=== PATIENT | female | born 1990 | race Caucasian/White ===

== ENCOUNTER 2020-01-11 06:25 | Emergency (ER) | payer MEDICAID ==
[~2020-01-11] VITALS: Ht 175.3 cm; Wt 87.7 kg
[2020-01-11 06:30] VITALS: BP 136/89
[2020-01-11] MEDS ORDERED: CYCL5TAB PO (06:53)
[2020-01-11] MEDS ORDERED: IBUP-571 PO (06:53)
--- NOTE | 2020-01-11 06:53 | PHYS DOC ---
Past History Past Medical History: Anxiety, Asthma, Depression Past Surgical History: Tubal ligation, Other Additional Past Surgical Histo: burned lower back nerves Alcohol Use: None Adult General Chief Complaint Chief Complaint: BACK PAIN - NO INJURY HPI HPI Patient is a 29-year-old female who presents for back pain. This has been going on for past 24 hours without known inciting event or trauma. Patient works as a reference library assistant, performs a lot of bending over motions in addition to twisting motions while sedentary in a chair. Nothing known makes better, she has not taken anything in attempt to alleviate the pain. "Everything "makes worse. Patient states she had to go home early yesterday from work due to pain. She called into work sick today due to the pain and nausea from subsequent pain. States pain is most prominent in neck muscles on right side of cervical spine and have been radiating down to right scapular region. Pain is 8 out of 10 in severity right now. Timing of symptoms has been constant and worsening since onset. She has significant mental health history without CAD. She has no red flag signs/symptoms of back pain such as trauma, unexplained weight loss, neurologic symptoms, age greater than 50, fever, history of IV drug use, history of steroid use, history of cancer. Review of Systems Review of Systems Fourteen body systems of review of systems have been reviewed. See HPI for pertinent positives and negative responses, other beard all other systems are negative, non-pertinent or non-contributory Allergies Allergies Allergies Coded Allergies Type Severity Reaction Last Updated Verified No Known Allergies Allergy Unknown 01/11/20 Yes Physical Exam Physical Exam Constitutional: Well developed, well nourished, no acute distress, non-toxic appearance. HENT: Normocephalic, atraumatic, bilateral external ears normal, oropharynx moist, no oral exudates, nose normal. Eyes: PERRLA, EOMI, conjunctiva normal, no discharge. Neck: Normal range of motion, no midline tenderness, supple, no stridor. Patient does have palpable muscle spasm to the right paracervical neck muscles most likely trapezius with taut muscle belly with tender point present. Cardiovascular: Heart rate regular, sinus rhythm, no murmurs rubs or gallops Lungs & Thorax: Bilateral breath sounds clear to auscultation Abdomen: Bowel sounds normal, soft, no tenderness, no masses, no pulsatile masses. Nonsurgical abdomen, no peritoneal signs Skin: Warm, dry, no erythema, no rash. Back: No midline tenderness, no CVA tenderness. Extremities: No tenderness, no cyanosis, no clubbing, ROM intact, no edema. Neurologic: Alert and oriented X 3, grossly normal motor & sensory function, no focal deficits noted. Psychologic: Affect normal, judgement normal, anxious mood Current Patient Data Vital Signs Vital Signs Date Time Temp Pulse Resp B/P (MAP) Pulse Ox O2 Delivery O2 Flow Rate FiO2 01/11/20 06:30 98.3 78 136/89 (105) 100 Room Air EKG EKG [] Radiology/Procedures Radiology/Procedures [] Heart Score HEART Score for Chest Pain: HEART Score for Chest Pain Response (Comments) Value History Slighlty/Non-Suspicious 0 ECG Normal 0 Age < 45 0 Risk Factors 1 or 2 Risk Factors 1 Total 1 Risk Factors: Risk Factors: DM, Current or recent (<one month) smoker, HTN, HLP, family history of CAD, obesity. Risk Scores: Risk Factors: DM, Current or recent (<one month) smoker, HTN, HLP, family history of CAD, obesity. Course & Med Decision Making Course & Med Decision Making Discussed most likely diagnosis of musculoskeletal neck/back pain. History and physical exam nonconcerning for any emergent and/or surgical findings. She has no red flag symptoms prompting further diagnostic work-up in ER setting I discussed role of supportive care, outpatient follow-up with primary care physician and consideration for referral to outpatient therapy versus chiropractor versus osteopathic physician for manipulation for her most likely musculoskeletal in nature pain I did discuss that this might be an acute presentation of more concerning pathology and thus, I stressed the importance of close outpatient follow-up Strict return precautions were discussed with good understanding by patient, all questions and concerns addressed prior to ER departure in stable condition Dragon Disclaimer Dragon Disclaimer This electronic medical record was generated, in whole or in part, using a voice recognition dictation system. Departure Departure: Impression: Primary Impression: Muscle spasm of back Additional Impression: Muscle spasms of neck Disposition: 01 DC HOME SELF CARE/HOMELESS Condition: STABLE Referrals: CHICA TAYLOR (PCP) Patient Instructions: Back Exercises, Muscle Strain Additional Instructions: You were evaluated in the Emergency Department today for neck/back pain. Your evaluation suggests no acute abnormalities which require further intervention at this time. - Move around as tolerated but avoiding heavy lifting. ``Bed rest is not recommended nor is it the best treatment - Medications will help control your discomfort: - -Ibuprofen (600 mg every 8 hours for pain) with food. - -Tylenol - Do not drink alcohol, drive a car, operate machinery, or get up on ladders or heights when taking any prescribed pain medications. - Do not drive home if you received prescribed pain medications here in the ED. Return to the ED immediately if you develop any of the following problems: - Leaking urine or difficulty urinating; - Inability to control your bowels; - New numbness or weakness in your legs or numbness between your legs; - Inability to walk - Fever Scripts Cyclobenzaprine Hcl (CYCLOBENZAPRINE HCL) 5 Mg Tablet 1 TAB PO QHS for muscle spasm, #7 TAB Prov: PATRICIO CLEMENS DO 01/11/20 Ibuprofen (Ibu) 600 Mg Tablet 1 TAB PO Q6-8HRS for pain, fever, inflammation for 6 Days, #24 TAB 0 Refills Prov: PATRICIO CLEMENS DO 01/11/20 Problem Qualifiers PATRICIO CLEMENS DO Jan 11, 2020 06:53
[2020-01-11] MEDS ORDERED: CYCLOBENZAPRINE 10 MG TABLET. PO ONE (07:00)
[2020-01-11] MEDS ORDERED: KETOROLAC 60 MG/2 ML VIAL. IM ONE (07:00)
== END 2020-01-11 07:51 | disposition home or self-care (01) ==
LOC: ER 06:25
DX: M62.830 Muscle spasm of back (principal); M62.838 Other muscle spasm; F41.9 Anxiety disorder, unspecified; J45.909 Unspecified asthma, uncomplicated; F32.9 Major depressive disorder, single episode, unspecified
CPT/HCPCS: 96372; 99283; J1885

== ENCOUNTER 2020-03-24 17:02 | Emergency (ER) | payer MEDICAID ==
[~2020-03-24] VITALS: Ht 175.3 cm; Wt 91.0 kg
[~2020-03-24 17:02] MED LIST: CYCL5TAB PO; IBUP-571 PO
[2020-03-24 17:40] LABS: BASO % 0 % (0-3); EOS # 0.4 x10^3/uL (0.0-0.7); EOS % 2 % (0-3); HEMATOCRIT 44.2 % (36.0-47.0); HEMOGLOBIN 14.4 g/dL (12.0-15.5); LYMPH # 5.1 x10^3/uL (1.0-4.8); LYMPH % 26 % (24-48); MEAN CORPUSCULAR HEMOGLOBIN 30 pg (25-35); MEAN CORPUSCULAR HGB CONC 33 g/dL (31-37); MEAN CORPUSCULAR VOLUME 91 fL (79-100); MONO # 1.8 x10^3/uL (0.0-1.1); MONO % 9 % (0-9); NEUT # 12.2 x10^3uL (1.8-7.7); NEUT % 62 % (31-73); PLATELET COUNT 308 x10^3/uL (140-400); RED BLOOD COUNT 4.85 x10^6/uL (3.50-5.40); RED CELL DISTRIBUTION WIDTH 15.1 % (11.5-14.5); WHITE BLOOD COUNT 19.6 x10^3/uL (4.0-11.0)
--- NOTE | 2020-03-24 17:46 | PHYS DOC ---
Past History Past Medical History: Anxiety, Asthma, Depression Past Surgical History: Tubal ligation, Other Additional Past Surgical Histo: burned lower back nerves Alcohol Use: None Adult General Chief Complaint Chief Complaint: HEAD INJURY/TRAUMA HPI HPI Patient is a 29-year-old female presents to the emergency department stating that approximately 30 minutes prior to arrival she took a bite of meatloaf and immediately started throwing up. Patient states that there was nothing wrong with the meatloaf, she just does not like meat loaf and was only eating it to be nice. Patient states that during her vomiting and retching episode she felt a sudden onset of severe pain in the back of her neck and head that she describes as a thunderclap onset. Patient states that the pain radiates to the front of her head. Patient denies any other numbness or tingling or other neurological deficits. Patient denies any visual changes. Patient denies photophobia. Patient states this is the worst headache she has ever had. Patient denies any history of migraine headaches, stating she has had headaches in the past but has never had one bad enough to require medical attention or seek medical help. Patient states her headaches in the past were always relieved with [id number] Tylenol and/or Motrin. Patient states she has of surgical history of a tubal ligation in 2015 and has had no other surgeries. Patient denies any food allergies. Patient denies chest pain, shortness of breath, cough, or congestion. Patient denies recent fever or chills. Patient denies any other physical symptoms or physical complaints. Review of Systems Review of Systems 14 body systems of review of systems have been reviewed. See HPI for pertinent positives and negative responses, otherwise all other systems are negative, nonpertinent or noncontributory. Current Medications Current Medications Patient reports taking daily Zyrtec, Advair inhaler, Lexapro, Metformin 500 mg twice daily, Singulair daily, lithium 1200 mg daily. Current Medications Medications (Trade) Dose Ordered Sig/Mayte Start Time Stop Time Status Last Admin Dose Admin Fentanyl Citrate (Fentanyl 2ml Vial) 50 mcg 1X ONCE 03/24/20 17:45 03/24/20 17:46 UNV Iohexol (Omnipaque 350 Mg/ml) 100 ml 1X ONCE 03/24/20 18:00 03/24/20 18:01 Allergies Allergies Allergies Coded Allergies Type Severity Reaction Last Updated Verified No Known Drug Allergies 03/24/20 No Physical Exam Physical Exam Constitutional: Well developed, well nourished, no acute distress, non-toxic appearance. Patient in no apparent distress. HENT: Normocephalic, atraumatic, bilateral external ears normal, oropharynx moist, no oral exudates, nose normal. Pain to palpation along base of occipital area superiorly to parietal area, no trauma appreciated, no depressions or swelling noted, skull intact. Eyes: PERRLA, EOMI, conjunctiva normal, no discharge. [] Neck: Normal range of motion, tenderness to palpation along midline spine, supple, no stridor. No nuchal rigidity appreciated Cardiovascular:Heart rate regular rhythm, no murmur [] Lungs & Thorax: Bilateral breath sounds clear to auscultation [] Abdomen: Bowel sounds normal, soft, no tenderness, no masses, no pulsatile masses. [] Skin: Warm, dry, no erythema, no rash. [] Back: No tenderness, no CVA tenderness. [] Extremities: No tenderness, no cyanosis, no clubbing, ROM intact, no edema. [] Neurologic: Alert and oriented X 3, normal motor function, normal sensory function, no focal deficits noted. [] Psychologic: Affect normal, judgement normal, mood normal. [] EKG EKG [] Radiology/Procedures Radiology/Procedures PATIENT: BESSIE PEMBERTON ACCOUNT: [id number] : 1990 LOCATION: ER AGE: 29 SEX: F EXAM STATUS: REG ER ORD. PHYSICIAN: ANA BELLA APRN REASON: THUNDERCLAP ONSET HEADACHE AFTER VOMITING PROCEDURE: CT ANGIOGRAPHY HEAD AND NECK Exam: CTA head and neck INDICATION: Thunderclap, onset headache after vomiting TECHNIQUE: Sequential axial images through the head and neck obtained following the administration of 90 mL of Isovue-370 IV contrast. Sagittal and coronal reformatted images were reconstructed from the axial data and reviewed. 3-D reformatted images were reconstructed from the axial data and reviewed. Comparisons: None FINDINGS: CTA NECK: Visualized portions thoracic aorta are unremarkable. Standard three-vessel aortic arch anatomy. Right common carotid artery is patent without evidence of stenosis, occlusion or aneurysm. Cervical segment of the right internal carotid artery without evidence of stenosis, occlusion or aneurysm. Left common carotid artery is patent without evidence of stenosis, occlusion or aneurysm. Cervical segment of the left internal carotid artery is patent without evidence of stenosis, occlusion or aneurysm. Right vertebral artery is patent to the basilar confluence without evidence of stenosis, occlusion or aneurysm. Left vertebral artery is patent to the basilar confluence without evidence of stenosis, occlusion or aneurysm. Visualized paraspinal soft tissues are unremarkable. CTA head: Intracranial segments of the right internal carotid artery are patent without evidence of stenosis, occlusion or aneurysm. Right MCA is patent. Right SHANE is patent. Intracranial segments of the left internal carotid artery is patent without evidence of stenosis, occlusion or aneurysm. Left MCA is patent. Left SHANE is patent. Basilar artery is patent without evidence of stenosis, occlusion or aneurysm. clinical scientist are patent bilaterally IMPRESSION: Patent intracranial and cervical arterial vasculature without evidence of stenosis, occlusion or aneurysm. Exposure: One or more of the following in the visualized dose reduction techniques were utilized for this examination: 1. Automated exposure control 2. Adjustment of the MA and/or KV according to patient size 3. Use of iterative of reconstructive technique Electronically signed by: Eduardo Callaway MD (03/24/2020 6:29 PM) [facility] DICTATED AND SIGNED BY: EDUARDO CALLAWAY MD DATE: 03/24/201823 CC: ANA BELLA APRN; CHICA TAYLOR ~MTH0 0 Heart Score Risk Factors: Risk Factors: DM, Current or recent (<one month) smoker, HTN, HLP, family history of CAD, obesity. Risk Scores: Risk Factors: DM, Current or recent (<one month) smoker, HTN, HLP, family history of CAD, obesity. Course & Med Decision Making Course & Med Decision Making Pertinent Labs and Imaging studies reviewed. (See chart for details) 29-year-old female, vital signs reviewed, presents to the ER for one episode of vomiting with a sudden onset headache thunderclap onset worst headache of her life. Physical examination unremarkable, related to patient chief complaint and onset ER work-up CT angio head and C-spine was ordered. CT negative for acute process, patient continued to complain of pain after 50 mics IV fentanyl, patient given 1 mg Dilaudid IV, upon reevaluation patient's pain is now 0/10 on a 1-10 pain scale and patient states she is ready to go home. Discussed findings with patient, return to ER precautions or concerns, home care, follow-up with primary care for ongoing headaches, patient gave v erbal understanding and had no further questions or concerns and was discharged home. Patient's white blood cell count elevated most likely related to acute onset vomiting prior to arrival. The patient is nontoxic in appearance and has no complaints at this time. Dragon Disclaimer Dragon Disclaimer This electronic medical record was generated, in whole or in part, using a voice recognition dictation system. Departure Departure: Impression: Primary Impression: Headache Disposition: 01 DC HOME SELF CARE/HOMELESS Condition: IMPROVED Referrals: CHICA TAYLOR (PCP) Patient Instructions: General Headache Without Cause Additional Instructions: You have been evaluated for headache, the CAT scan of your head did not show any concerning problems, follow-up with your primary care doctor for ongoing he adache pains, return to the emergency department for worsening symptoms or other concerns. EMERGENCY DEPARTMENT GENERAL DISCHARGE INSTRUCTIONS Thank you for coming to [facility] (ED) today and trusting us with you care. We trust that you had a positivie experience in our Emergency Department. If you wish to speak to the department management, you may call the director at [phone]. YOUR FOLLOW UP INSTRUCTIONS ARE FOLLOWS: 1. Do you have a private Doctor? If you do not have a private doctor, please ask for a resource list of physicians or clinics that may be able to assist you with follow up care. 2. The Emergency Physician has interpreted your x-rays. The X-Ray specialist will also review them. If there is a change in the findings, you will be notified in 48 hours when at all possible. 3. A lab test or culture has been done, your results will be reviewed and you will be notified if you need a change in treatment. ADDITIONAL INSTRUCTIONS AND INFORMATION: 1. Your care today has been supervised by a physician who is specially trained in emergency care. Many problems require more than one evaluation for a complete diagnosis and treatment. We recommend that you schedule your follow up appointment as recommended to ensure complete treatment of you illness or injury. If you are unable to obtain follow up care and continue to have a problem, or if your condition worsens, we recommend that you return to the ED. 2. We are not able to safely determine your condition over the phone nor are we able to give sound medical advice over the phone. For these safety reasons, if you call for medical advice we will ask you to come to the ED for further evaluation. 3. If you have any questions regarding these discharge instructions please call the ED at [phone]. SAFETY INFORMATION: In the interest of safety, wellness, and injury prevention; we encourage you to wear your sealbelt, if you smoke; quite smoking, and we encourage family to use a protective helmet for bicycling and other sporting events that present an increased risk for head injury. IF YOUR SYMPTOMS WORSEN OR NEW SYMPTOMS DEVELOP, OR YOU HAVE CONCERNS ABOUT YOUR CONDITION; OR IF YOUR CONDITION WORSENS WHILE YOU ARE WAITING FOR YOUR FOLLOW UP APPOI NTMENT; EITHER CONTACT YOUR PRIMARY CARE DOCTOR, THE PHYSICIAN WHOSE NAME AND NUMBER YOU WERE GIVEN, OR RETURN TO THE ED IMMEDIATELY. Problem Qualifiers Primary Impression: Headache Headache type: unspecified Headache chronicity pattern: acute headache Intractability: not intractable Qualified Codes: R51.9 - Headache, unspecified ANA BELLA APRN Mar 24, 2020 17:45
[2020-03-24 17:48] LABS: ALBUMIN/GLOBULIN RATIO 1.1 (1.0-1.7); CALCIUM 10.4 mg/dL (8.5-10.1); CREATININE 0.8 mg/dL (0.6-1.0); GFR 84.8; POTASSIUM 3.8 mmol/L (3.5-5.1); TOTAL BILIRUBIN 0.3 mg/dL (0.2-1.0); TOTAL PROTEIN 7.6 g/dL (6.4-8.2)
[2020-03-24] MEDS ORDERED: IOHEXOL 350 MG/ML 100 ML VIAL. IV ONE (18:00)
[2020-03-24] MEDS ORDERED: HYDROmorphone PF 1 MG/ML DISP.SYRIN IVP ONE (18:30)
--- NOTE | 2020-03-24 18:31 | RAD ---
Exam: CTA head and neck INDICATION: Thunderclap, onset headache after vomiting TECHNIQUE: Sequential axial images through the head and neck obtained following the administration of 90 mL of Isovue-370 IV contrast. Sagittal and coronal reformatted images were reconstructed from the axial data and reviewed. 3-D reformatted images were reconstructed from the axial data and reviewed. Comparisons: None FINDINGS: CTA NECK: Visualized portions thoracic aorta are unremarkable. Standard three-vessel aortic arch anatomy. Right common carotid artery is patent without evidence of stenosis, occlusion or aneurysm. Cervical s egment of the right internal carotid artery without evidence of stenosis, occlusion or aneurysm. Left common carotid artery is patent without evidence of stenosis, occlusion or aneurysm. Cervical se gment of the left internal carotid artery is patent without evidence of stenosis, occlusion or aneury sm. Right vertebral artery is patent to the basilar confluence without evidence of stenosis, occlusion or aneurysm. Left vertebral artery is patent to the basilar confluence without evidence of stenosis, occlusion or aneurysm. Visualized paraspinal soft tissues are unremarkable. CTA head: Intracranial segments of the right internal carotid artery are patent without evidence of stenosis, o cclusion or aneurysm. Right MCA is patent. Right SHANE is patent. Intracranial segments of the left internal carotid artery is patent without evidence of stenosis, occ lusion or aneurysm. Left MCA is patent. Left SHANE is patent. Basilar artery is patent without evidence of stenosis, occlusion or aneurysm. principal account clerk are patent bilater ally IMPRESSION: Patent intracranial and cervical arterial vasculature without evidence of stenosis, occlusion or aneu rysm. Exposure: One or more of the following in the visualized dose reduction techniques were utilized for this examination: 1. Automated exposure control 2. Adjustment of the MA and/or KV according to patient size 3. Use of iterative of reconstructive technique Electronically signed by: Eduardo Kuo MD (03/24/2020 6:29 PM) [facility]
[2020-03-24 18:32] VITALS: BP 172/91
== END 2020-03-24 18:52 | disposition home or self-care (01) ==
LOC: ER 17:02
DX: R51.9 Headache, unspecified (principal); R11.10 Vomiting, unspecified; F41.9 Anxiety disorder, unspecified; J45.909 Unspecified asthma, uncomplicated; F32.9 Major depressive disorder, single episode, unspecified; Z98.51 Tubal ligation status; Z98.890 Other specified postprocedural states
CPT/HCPCS: 36415; 70496; 70498; 80053; 85025; 96374; 96375; 99285; J1170; J3010

== ENCOUNTER 2020-03-25 04:29 | Emergency (ER) | payer MEDICAID ==
[~2020-03-25] VITALS: Ht 175.3 cm; Wt 90.1 kg
--- NOTE | 2020-03-25 04:32 | PHYS DOC ---
Past History Past Medical History: Anxiety, Asthma, Depression, Fibromyalgia, High Cholesterol, Migraines Past Medical History Hx. Borderline Personality (KRISTIE ANDRADE MD) Past Surgical History: Tubal ligation, Other Additional Past Surgical Histo: burned lower back nerves (KRISTIE ANDRADE MD) Smoking: Cigarettes Alcohol Use: None (KRISTIE ANDRADE MD) General Adult HPI: HPI: ".. I got sick yesterday.. and came in they did a CT.. for my headache.. and got some pain meds.. but symptom cleared here.. so they sent me home.." Patient is a 29 year old female who presents with above hx and complaints of nausea, vomiting, diarrhea, headache, malaise, arthralgia, and now dry heaves. Patient states symptoms started yesterday after eating some meat loaf. Patient states that the people in the family ate the meat loaf with no episode of nausea and vomiting. No recent travel. No specific ill contacts. Normally follows with Dr. Stone. Patient does have a history of chronic pain, chronic back pain, borderline personality, depression, anxiety, asthma, obesity, allergies, and takes lithium for control of her depression. Patient follows with Dr. Sukhi SCOTT for her depression and psych meds. Patient denies any trauma. Patient has history 2 term 2 and tubal ligation 2014. Patient had surgical treatment of her chronic back pain- trigger points burnt. Patient has been compliant with her lithium of 1200 mg a day. Patient cervical & head CT- with contrast yesterday showed no acute pathology. Patient does not do flu vaccination. Has 3 dogs at home they are all well. They are on city water. No one else in the home are ill. Patient denies any fever or chills. (KRISTIE ANDRADE MD) Review of Systems: Review of Systems: Constitutional: Denies fever or chills Eyes: Denies change in visual acuity HENT: Denies nasal congestion or sore throat Respiratory: Denies cough or shortness of breath Cardiovascular: Denies chest pain or edema GI: Complains of abdominal pain, nausea, vomiting, and diarrhea. Denies bloody stools : Denies dysuria Musculoskeletal: Denies back pain or joint pain Integument: Denies rash Neurologic: Complains of headache,. Denies focal weakness or sensory changes Endocrine: Denies polyuria or polydipsia Lymphatic: Denies swollen glands Psychiatric: Complaints of depression and anxiety (KRISTIE ANDRADE MD) Family History: Family History: Noncontributory to presentation (KRISTIE NADRADE MD) Current Medications: Current Meds: See nursing for home meds (KRISTIE ANDRADE MD) Allergies: Allergies: Allergies Coded Allergies Type Severity Reaction Last Updated Verified No Known Drug Allergies 03/24/20 No (KRISTIE ANDRADE MD) Physical Exam: PE: Constitutional: Moderately acute distress, non-toxic appearance. [] HENT: Normocephalic, atraumatic, bilateral external ears normal, oropharynx moist, no oral exudates, nose swollen turbinates clear rhinorrhea. Eyes: PERRLA, EOMI, conjunctiva normal, no discharge. [] Neck: Normal range of motion, no tenderness, supple, no stridor. [] Cardiovascular: Tachycardia heart rate regular rhythm, no murmur [] Lungs & Thorax: Bilateral breath sounds equal apex with few scattered wheezes auscultation [] Abdomen: Bowel sounds hyperactive, soft, generalized tenderness, no masses, no pulsatile masses. Old surgery scars. Obese Skin: Warm, dry, no erythema, no rash. Tattoos Back: No tenderness, no CVA tenderness. [] Extremities: No tenderness, no cyanosis, no clubbing, ROM intact, no edema. [] Neurologic: Alert and oriented X 3, normal motor function, normal sensory function, no focal deficits noted. DTRs +2 patella and brachial. Chief Operator Reformer equal. No drift. Ambulatory without problems. Right-hand dominant. Psychologic: Affect anxious, judgement normal, mood depressed. No suicidal homicidal ideation. (KRISTIE ANDRADE MD) EKG: EKG: [] (KRISTIE ANDRADE MD) Radiology/Procedures: Radiology/Procedures: [][address] [address] IMAGING REPORT Signed PATIENT: BESSIE PEMBERTON ACCOUNT: [id number] : 1990 LOCATION: ER AGE: 29 SEX: F EXAM STATUS: PRE ER ORD. PHYSICIAN: KRISTIE ANDRADE MD REASON: Nausea, vomiting, headache PROCEDURE: ACUTE ABDOMEN SERIES ACUTE ABDOMEN SERIES History: Nausea, vomiting, headache. Comparison: None. Findings: Frontal chest and supine and upright views of the abdomen. Cardiomediastinal silhouette is normal. There is no pleural effusion or pneumothorax. The lungs are clear. No pneumoperitoneum is identified. There is a paucity of bowel gas decreasing sensitivity. No dilated air-filled loops of bowel are seen. Bowel gas pattern is nonobstructive. No obvious organomegaly. Bones unremarkable. IMPRESSION: 1. No acute cardiopulmonary process. 2. Nonobstructive bowel gas pattern. Electronically signed by: Rubio Dudley MD (03/25/2020 5:30 AM) [facility] DICTATED AND SIGNED BY: RUBIO DUDLEY MD DATE: 03/25/20527 CC: KRISTIE ANDRADE MD; MANUELTriniCHICA D ~MTH0 0 (KRISTIE ANDRADE MD) Heart Score: Risk Factors: Risk Factors: DM, Current or recent (<one month) smoker, HTN, HLP, family history of CAD, obesity. Risk Scores: Score 0 - 3: 2.5% MACE over next 6 weeks - Discharge Home Score 4 - 6: 20.3% MACE over next 6 weeks - Admit for Clinical Observation Score 7 - 10: 72.7% MACE over next 6 weeks - Early Invasive Strategies (KRISTIE ANDRADE MD) Course & Med Decision Making: Course & Med Decision Making Pertinent Labs and Imaging studies reviewed. (See chart for details) Pt. endorsed to Dr. Blount at shift change she will make disposition of pt. 0600 Impression: 1. Acute gastroenteritis nausea vomiting diarrhea 2. Viral syndrome 3. Headache- 4. History of depression treated with lithium 5. History of anxiety 6. History of borderline personality [] (KRISTIE ANDRADE MD) Course & Med Decision Making Accepted care of patient at shift change, patient is pending urine but will discuss with patient she has no urinary symptoms. Given Toradol with decrease in headache pain to a 2 out of 10. Patient states she is feeling much better and would like to go home. Discussed return precautions and following up with primary care (JEB BLOUNT MD) Dragon Disclaimer: Dragon Disclaimer: This electronic medical record was generated, in whole or in part, using a voice recognition dictation system. (KRISTIE ANDRADE MD) Departure Departure: Impression: Primary Impression: Headache Disposition: 01 DC HOME SELF CARE/HOMELESS Condition: IMPROVED Referrals: CHICA STONE (PCP) Patient Instructions: General Headache Without Cause Additional Instructions: You have been tested for or diagnosed with COVID-19. It is an infection caused by a new type of coronavirus. COVID-19 will cause cold-like or mild flu symptoms in most. It can cause more severe symptoms like problems breathing in some. There is no treatment for COVID-19. The body will clear the infection over time. Self-care will help to ease discomfort. Steps to Take: Self-Care Rest as needed. Healthy habits may help you feel better. Steps include: Choose healthy foods including fruits and vegetables. Drink water throughout the day. Get plenty of sleep each night. If you smoke, try to quit. It may ease breathing. Avoid alcohol. Keep Others Healthy The virus can spread to others. Droplets are released every time you sneeze or cough. The droplets can get into the mouth, nose, or eyes of people near you and lead to infection. To lower the chances of spreading COVID-19 to others: Stay at home until your doctor has said it is safe to leave. If you tested positive this will mean staying isolated until both of the following are true: At least 7 days have passed since the start of illness. You are free of fever for at least 72 hours without the use of medicine. During this time: - Avoid public areas, events, or transportation. Do not return to work or school until your doctor has said it is safe to do so. - Call ahead if you need to go to a medical center. Let them know you may have COVID-19. It will help them guide you where to go. They may also ask you to wear a facemask when you come to the office. - If you call for emergency medical services, let them know you may have COVID- 19. While at home: - Try to avoid close contact with others. Stay about 6 feet away. - If possible, spend most of your time in a separate room from others. - Use a face mask if you will be in close contact with others such as sharing a room or vehicle. - Have someone wipe down common surfaces in the home. Use household office machine punch operator every day on areas like doorknobs, counters, or sinks. - Cough or sneeze into a tissue. Throw the tissue away right after use. If a tissue is not available, cough or sneeze into your elbow. - Wash your hands often. Wash them after sneezing or coughing. Use soap and water and wash for at least 20 seconds. Alcohol based hand stitch cleaner can be used if soap and water is not available. - Do not prepare food for others. Avoid sharing personal items like forks, spoons, or toothbrushes. - Avoid close contact with pets while you are sick. There is no evidence of the virus passing to pets. This is a safety step until more is known about this virus. Isolation can be frustrating. Social interaction can help. Keep in touch with friends and family through phone and tech options. You can still interact with others in your home, just keep a safe distance of about 6 feet. Follow-up: Your doctors office will check in with you to see if there are any changes in your health. You may be asked to keep track of symptoms to share with them. They will also let you know when you are clear to be in public again. Problems to Look Out For: Contact your doctor if your recovery is not going as you expect. Get emergency care if you have problems such as: - Trouble breathing - Nonstop chest pain or pressure - Changes in awareness, confusion, or problems waking - Lips or face have bluish color - Worsening of symptoms If you think you have an emergency, call for emergency medical services right away. As taken from [facility] Disclaimer This chart was dictated in whole or in part using Voice Recognition software in a busy, high-work load, and often noisy Emergency Department environment. It may contain unintended and wholly unrecognized errors or omissions. (KRISTIE ANDRADE MD) KRISTIE ANDRADE MD Mar 25, 2020 04:32 JEB BLOUNT MD Mar 25, 2020 07:08
[2020-03-25] MEDS ORDERED: PROCHLORPERAZINE 10 MG/2 ML VIAL. IV ONE (05:00)
[2020-03-25] MEDS ORDERED: IV RINGERS SOLUTION,LACTATED 1,000 ML IV SCH (05:00)
[2020-03-25] MEDS ORDERED: diphenhydrAMINE 50 MG/ML VIAL IV ONE (05:00)
--- NOTE | 2020-03-25 05:15 | EKG ---
[address] [address] Test Date: 2020-03-25 Test Time: 05:08:28 Pat Name: BESSIE PEMBERTON Department: Room: Gender: F Lsat Instructor: : 1990 Requested By: KRISTIE ANDRADE Order Number: [id number] Reading MD: Measurements Intervals [place] Rate: 80 P: 55 MS: 146 QRS: 60 QRSD: 88 T: 53 QT: 382 QTc: 444 Interpretive Statements SINUS RHYTHM NORMAL ECG RI6.02 No previous ECG available for comparison
--- NOTE | 2020-03-25 05:33 | RAD ---
ACUTE ABDOMEN SERIES History: Nausea, vomiting, headache. Comparison: None. Findings: Frontal chest and supine and upright views of the abdomen. Cardiomediastinal silhouette is normal. There is no pleural effusion or pneumothorax. The lungs are clear. No pneumoperitoneum is identified. There is a paucity of bowel gas decreasing sensitivity. No dilated air-filled loops of bowel are seen. Bowel gas pattern is nonobstructive. No obvious organomegaly. Bones unremarkable. IMPRESSION: 1. No acute cardiopulmonary process. 2. Nonobstructive bowel gas pattern. Electronically signed by: Rubio Dudley MD (03/25/2020 5:30 AM) [facility]
[2020-03-25 05:52] LABS: CALCIUM 9.7 mg/dL (8.5-10.1); CREATININE 0.8 mg/dL (0.6-1.0); GFR 84.8; POTASSIUM 3.6 mmol/L (3.5-5.1)
[2020-03-25 05:58] LABS: ALBUMIN 3.7 g/dL (3.4-5.0); BASO # 0.1 x10^3/uL (0.0-0.2); BASO % 1 % (0-3); C REACTIVE PROTEIN 7.3 mg/L (0-3.3); DIRECT BILIRUBIN 0.2 mg/dL (0.0-0.2); EOS # 0.5 x10^3/uL (0.0-0.7); EOS % 4 % (0-3); HEMATOCRIT 44.3 % (36.0-47.0); HEMOGLOBIN 14.3 g/dL (12.0-15.5); LYMPH # 2.4 x10^3/uL (1.0-4.8); LYMPH % 19 % (24-48); MAGNESIUM 1.8 mg/dL (1.8-2.4); MEAN CORPUSCULAR HEMOGLOBIN 29 pg (25-35); MEAN CORPUSCULAR HGB CONC 32 g/dL (31-37); MEAN CORPUSCULAR VOLUME 91 fL (79-100); MONO # 1.1 x10^3/uL (0.0-1.1); MONO % 9 % (0-9); NEUT # 8.3 x10^3uL (1.8-7.7); NEUT % 67 % (31-73); PLATELET COUNT 275 x10^3/uL (140-400); RED BLOOD COUNT 4.88 x10^6/uL (3.50-5.40); RED CELL DISTRIBUTION WIDTH 15.1 % (11.5-14.5); TOTAL BILIRUBIN 0.9 mg/dL (0.2-1.0); TOTAL PROTEIN 7.3 g/dL (6.4-8.2); WHITE BLOOD COUNT 12.3 x10^3/uL (4.0-11.0)
[2020-03-25] MEDS ORDERED: KETOROLAC 30 MG/ML VIAL. IVP ONE (06:15)
[2020-03-25] MEDS ORDERED: KETOROLAC 30 MG/ML VIAL. ONE (06:17)
[2020-03-25 06:55] LABS: INFLUENZA A PATIENT NEGATIVE (NEGATIVE); INFLUENZA B PATIENT NEGATIVE (NEGATIVE)
[2020-03-25 07:10] VITALS: BP 123/83
[2020-03-25 07:33] LABS: % ATYL 3 % (0-0); % BANDS 3 % (0-9); % EOS 6 % (0-5); % LYMPHS 13 % (24-48); % MONOS 5 % (0-10); % SEGS 70 % (35-66)
[2020-03-25 07:35] LABS: PLT ESTIMATE ADEQUATE (ADEQUATE); POLYCHROMASIA PRESENT
== END 2020-03-25 07:15 | disposition home or self-care (01) ==
LOC: ER 04:29
DX: K52.9 Noninfective gastroenteritis and colitis, unspecified (principal); B34.9 Viral infection, unspecified; G43.909 Migraine, unspecified, not intractable, without status migrainosus; F60.3 Borderline personality disorder; F31.9 Bipolar disorder, unspecified; F41.9 Anxiety disorder, unspecified; F17.210 Nicotine dependence, cigarettes, uncomplicated; J45.909 Unspecified asthma, uncomplicated; M79.7 Fibromyalgia; E78.00 Pure hypercholesterolemia, unspecified; Z20.822 Contact with and (suspected) exposure to COVID-19
CPT/HCPCS: 36415; 74022; 80048; 80076; 80178; 82150; 82550; 83690; 83735; 84443; 84484; 85007; 85025; 85610; 85730; 86140; 86705; 86709; 86803; 87340; 87804; 93005; 96361; 96374; 96375; 99285; C9803; J0780; J1200; J1885; J7120; U0003

== ENCOUNTER 2020-03-28 06:17 | Emergency (ER) | payer MEDICAID ==
[~2020-03-28] VITALS: Ht 175.3 cm; Wt 90.1 kg
[2020-03-28 06:17] VITALS: BP 185/83
[2020-03-28] MEDS ORDERED: HALOPERIDOL LACT 5 MG/ML VIAL. IVP ONE (06:45)
[2020-03-28] MEDS ORDERED: IV NORMAL SALINE 1,000ML 1,000 ML IV ONE (06:45)
[2020-03-28] MEDS ORDERED: DEXAMETHASONE SOD PHOS 10 MG/ML VIAL. IV ONE (06:45)
[2020-03-28] MEDS ORDERED: PROCHLORPERAZINE 10 MG/2 ML VIAL. IV ONE (06:45)
[2020-03-28] MEDS ORDERED: diphenhydrAMINE HCL 25 MG CAPSULE PO ONE (06:45)
--- NOTE | 2020-03-28 07:06 | PHYS DOC ---
Past History Past Medical History: Anxiety, Asthma, Depression, Fibromyalgia, High Cholesterol, Migraines Past Surgical History: Tubal ligation, Other Additional Past Surgical Histo: BURNED LOWER BACK NERVES Smoking: Cigarettes Alcohol Use: None Adult General Chief Complaint Chief Complaint: HEADACHE HPI HPI Patient is a 29-year-old female who presents to the emergency room complaining of headache. Patient has been having intermittent headaches since Thursday. She states that the headache is always there but does improve over time. She has been taking Tylenol at home for this without any relief. She also took prednisone yesterday without any relief. She was seen here on Thursday for the same symptoms and at that time had a CT angio and KUB that were normal. She was having nausea and diarrhea when this originally started. She states that she took a suppository for her nausea today which resolved with those symptoms. She states she went to go to the bathroom this morning to have a bowel movement and her headache suddenly got severely worse. She states this happens typically anytime she tries to have a bowel movement or she vomits. Review of Systems Review of Systems Complete ROS is negative unless otherwise documented in HPI Current Medications Current Medications Current Medications Medications (Trade) Dose Ordered Sig/Mayte Start Time Stop Time Status Last Admin Dose Admin Dexamethasone Sodium Phosphate (Decadron) 10 mg 1X ONCE 03/28/20 06:45 03/28/20 06:46 UNV Diphenhydramine HCl (Benadryl) 25 mg 1X ONCE 03/28/20 06:45 03/28/20 06:46 UNV Haloperidol Lactate (Haldol) 5 mg 1X ONCE 03/28/20 06:45 03/28/20 06:46 UNV Prochlorperazine Edisylate (Compazine) 10 mg 1X ONCE 03/28/20 06:45 03/28/20 06:46 UNV Sodium Chloride 1,000 ml @ 1,000 mls/hr 1X ONCE 03/28/20 06:45 03/28/20 07:44 UNV Allergies Allergies Allergies Coded Allergies Type Severity Reaction Last Updated Verified No Known Drug Allergies 03/24/20 No Physical Exam Physical Exam General: Awake, alert, NAD. Well Nourished, well hydrated. Cooperative HEENT: Atraumatic, EOMI, PERRL, airway patent, moist oral mucosa Neck: Supple, trachea midline Respiratory: CTA bilaterally, normal effort, no wheezing/crackles CV: RRR, no murmur, cap refill <2 GI: Soft, nondistended, nontender, no masses MSK: No obvious deformities Skin: Warm, dry, intact Neuro: A&O x3, speech NL, 5/5 strength in BUE/BLE distally and proximally, CN 2- 12 intact, cerebellar testing normal Psych: Normal affect, tearful, not suicidal or homicidal Current Patient Data Vital Signs Vital Signs Date Time Temp Pulse Resp B/P (MAP) Pulse Ox O2 Delivery O2 Flow Rate FiO2 03/28/20 06:17 98.9 75 22 185/83 (117) 99 Room Air EKG EKG [] Radiology/Procedures Radiology/Procedures [] Heart Score Risk Factors: Risk Factors: DM, Current or recent (<one month) smoker, HTN, HLP, family history of CAD, obesity. Risk Scores: Risk Factors: DM, Current or recent (<one month) smoker, HTN, HLP, family history of CAD, obesity. Course & Med Decision Making Course & Med Decision Making Pertinent Labs and Imaging studies reviewed. (See chart for details) Patient is a 29-year-old female who presents to the emergency room complaining of severe headache. Patient has been having a constant headache for the last several days with exacerbations intermittently. She had a CT angio done earlier this week that was normal and did not show any signs of aneurysm. This is likely related to a viral syndrome. Given that she had onset of severe headache right before arrival we will do a CT to rule out a subarachnoid hemorrhage. Patient will be treated symptomatically. Patient improved with symptomatic care. CT was negative. Patient had a lithium level drawn earlier this week that was within normal limits. This does not appear to be lithium toxicity. Patient likely has a viral illness. Patient's test results and vitals while in the ED were fully reviewed and discussed with the patient. Patient is stable and at this time does not need admission to the hospital. We have discussed strict return precautions and the importance of following up with their Primary Care Physician. Patient stated understanding and was given an opportunity to ask any questions. Patient is in agreement with plan. Dragon Disclaimer Dragon Disclaimer This electronic medical record was generated, in whole or in part, using a voice recognition dictation system. Departure Departure: Impression: Primary Impression: Headache Disposition: 01 DC HOME SELF CARE/HOMELESS Condition: IMPROVED Referrals: CHICA TAYLOR (PCP) Patient Instructions: Headache, FAQs, Headaches, Analgesic Rebound Scripts Butalb/Acetaminophen/Caffeine ([id number] [id number]) 1 Each Tablet 1 EACH PO Q12H PRN for HEADACHE for 3 Days, #6 TAB Prov: MCKENZIE AREVALO MD 03/28/20 MCKENZIE AREVALO MD Mar 28, 2020 07:06
--- NOTE | 2020-03-28 07:20 | RAD ---
Exam performed: CT scan of the head without contrast. Date of Service: 03/28/2020. Comparison: None available angiogram of the head and neck from 03/24/2020. Clinical History: Sudden onset severe headache, blurred vision and nausea. Technique: Helical acquisitions are obtained from the foramen magnum to the vertex without intravenou s administration of contrast. Findings: The ventricles are midline without evidence of dilatation. Normal galindo-white differentiation is maint ained. There is no extra axial fluid collection, intraparenchymal hemorrhage or mass lesion. The vi sualized portions of the orbits, paranasal sinuses and the mastoid air cells appear clear. The elieser rium is intact. Impression: 1. No acute intracranial process detected. PQRS Compliance Statement: One or more of the following individualized dose reduction techniques were utilized for this examinat ion: 1. Automated exposure control 2. Adjustment of the mA and/or kV according to patient size 3. Use of iterative reconstruction technique Electronically signed by: Ashley Santana MD (03/28/2020 7:18 AM) [id number]
[2020-03-28] MEDS ORDERED: SUMAtriptan SUCC 6 MG/0.5 ML VIAL SQ ONE (07:45)
[2020-03-28] MEDS ORDERED: KETOROLAC 30 MG/ML VIAL. IVP ONE (08:00)
[2020-03-28] MEDS ORDERED: BUTA1TAB23 PO (08:30)
== END 2020-03-28 08:56 | disposition home or self-care (01) ==
LOC: ER 06:17
DX: G43.909 Migraine, unspecified, not intractable, without status migrainosus (principal); R19.7 Diarrhea, unspecified; R11.0 Nausea; F41.9 Anxiety disorder, unspecified; J45.909 Unspecified asthma, uncomplicated; M79.7 Fibromyalgia; E78.00 Pure hypercholesterolemia, unspecified; F32.9 Major depressive disorder, single episode, unspecified; F17.210 Nicotine dependence, cigarettes, uncomplicated
CPT/HCPCS: 70450; 96361; 96372; 96374; 96375; 99284; J0780; J1100; J1630; J1885; J3030; J7030; Q0163

== ENCOUNTER → 2021-06-24 | Outpatient (CLI) | payer MEDICAID ==
[~2021-06-24] MED LIST changes: +BUTA1TAB23 PO
--- NOTE | 2021-06-25 12:27 | RAD ---
XR ELBOW COMPLETE_RIGHT 3+ VIEWS DATE: 06/24/2021 4:36 PM INDICATION: RT ELBOW PAIN, N.K.I. COMPARISON: None. FINDINGS: Bones: There is no evidence of acute fracture or dislocation. Joints: The joint spaces are normal. There is no joint effusion. Miscellaneous: None. IMPRESSION: Normal exam Electronically signed by: Dalton Watson MD (06/25/2021 12:24 PM) [id number]
== END ==
LOC: RAD 16:19
PROVIDERS: ATTEND Psychiatry & Neurology Neurology
DX: M25.521 Pain in right elbow (principal)
CPT/HCPCS: 73080